=== PATIENT | male | born 1945 | race Caucasian/White ===

== ENCOUNTER → 2017-07-23 | Outpatient (CLI) | payer OTHER ==
[2017-07-23] MEDS: IOHEXOL 300 MG/ML 100ML VIAL. IV (12:26)
[2017-07-23 12:52] LABS: ISTAT CREATININE 1.1 mg/dL (0.7-1.3)
== END | disposition home or self-care (01) ==
LOC: KCIC CT 11:53
DX: J98.11 Atelectasis (principal); J84.10 Pulmonary fibrosis, unspecified; I70.0 Atherosclerosis of aorta; R91.8 Other nonspecific abnormal finding of lung field
CPT/HCPCS: 71275; 82565; Q9967

== ENCOUNTER → 2017-08-27 | Outpatient (CLI) | payer OTHER ==
[2017-08-27] MEDS: REGADENOSON 0.4 MG/5 ML DISP.SYRIN. IV (11:44)
== END | disposition home or self-care (01) ==
LOC: NM 09:10
DX: I45.10 Unspecified right bundle-branch block (principal); J44.9 Chronic obstructive pulmonary disease, unspecified; I10 Essential (primary) hypertension; Z87.891 Personal history of nicotine dependence
CPT/HCPCS: 78452; 93017; 96374; 96375; 96376; A9500; J2785